=== PATIENT | female | born 1990 | race Caucasian/White ===

== ENCOUNTER 2017-06-01 23:53 | Emergency (ER) | payer OTHER ==
[2017-06-02] MEDS: ACETAMINOPHEN 500 MG TAB PO (02:22)
== END 2017-06-02 02:54 | disposition home or self-care (01) ==
LOC: FTE 23:53
DX: H65.01 Acute serous otitis media, right ear (principal)
CPT/HCPCS: 99283; Z7502

== ENCOUNTER 2017-06-02 06:54 | Inpatient (IN) | payer OTHER ==
[2017-06-02] MEDS ORDERED: LIDOCAINE 1% (MPF) 30 ML INJ INJ (08:00)
[2017-06-02] MEDS ORDERED: IBUPROFEN 600 MG TAB PO (08:00)
[2017-06-02] MEDS ORDERED: OXYTOCIN 30 UNITS/LR 500 ML IV (08:00)
[2017-06-02] MEDS ORDERED: MISOPROSTOL 200 MCG TAB PR (08:00)
[2017-06-02] MEDS ORDERED: METHYLERGONOVINE 0.2 MG INJ IM (08:00)
[2017-06-02] MEDS ORDERED: CARBOPROST 250 MCG INJ IM (08:00)
[2017-06-02 08:09] LABS: ADD MAN DIFF? NO
[2017-06-02 08:17] LABS: BASOPHILS % 0.3 % (0.0-2.0); EOSINOPHILS # 0.3 10^3/ul (0.0-0.5); EOSINOPHILS % 2.7 % (0.0-7.0); HEMATOCRIT 35.9 % (37.0-47.0); HEMOGLOBIN 11.8 g/dl (12.0-16.0); LYMPHOCYTES # 2.3 10^3/ul (0.8-2.9); LYMPHOCYTES % 20.6 % (15.0-51.0); MEAN CORPUSCULAR HEMOGLOBIN 25.3 pg (29.0-33.0); MEAN CORPUSCULAR HGB CONC 32.9 g/dl (32.0-37.0); MONOCYTE # 0.6 10^3/ul (0.3-0.9); MONOCYTES % 5.6 % (0.0-11.0); NEUTROPHILS % 70.4 % (39.0-77.0); PLATELET COUNT 237 10^3/UL (140-415); RED BLOOD COUNT 4.66 10^6/ul (4.20-5.40); RED CELL DISTRIBUTION WIDTH 14.3 % (11.5-14.5)
[2017-06-02 08:17] LABS: WHITE BLOOD COUNT 11.3 10^3/ul (4.8-10.8)
[2017-06-02 08:37] LABS: ALANINE AMINOTRANSFERASE 15 IU/L (13-69); ALBUMIN 3.2 g/dl (3.3-4.9); ALBUMIN/GLOBULIN RATIO 0.91; ALKALINE PHOSPHATASE 176 IU/L (42-121); ANION GAP 14 (8-16); ASPARTATE AMINO TRANSFERASE 15 IU/L (15-46); BILIRUBIN,INDIRECT 0.2 mg/dl (0-1.1); BILIRUBIN,TOTAL 0.2 mg/dl (0.2-1.3); BLOOD UREA NITROGEN 8 mg/dl (7-20); CALCIUM 8.8 mg/dl (8.4-10.2); CARBON DIOXIDE 22 mmol/L (21-31); CHLORIDE 108 mmol/L (97-110); CREATININE 0.76 mg/dl (0.44-1.00); GLUCOSE 89 mg/dl (70-220); POTASSIUM 4.1 mmol/L (3.5-5.1); SODIUM 140 mmol/L (135-144); TOTAL PROTEIN 6.7 g/dl (6.1-8.1); URIC ACID 5.5 mg/dl (3.1-7.9)
[2017-06-02 08:45] LABS: INR 0.88; PT RATIO 0.9
[2017-06-02 08:46] LABS: PARTIAL THROMBOPLASTIN TIME 27.2 Sec (25.0-35.0)
[2017-06-02] MEDS ORDERED: OXYCODONE/ACETAMINOPHEN (5/325) TAB PO (09:00)
[2017-06-02] MEDS ORDERED: BUTORPHANOL 2 MG INJ IV (09:00)
[2017-06-02 09:08] LABS: HEPATITIS B SURFACE ANTIGEN NEGATIVE (NEGATIVE)
[2017-06-02] MEDS: DINOPROSTONE 10 MG VAG SUPP VAG (09:15)
[2017-06-02] MEDS: LABETALOL 100 MG TAB PO ×2 (09:16→21:51)
[2017-06-02] MEDS: LACTATED RINGER'S 1,000 ML IV ×4 (09:16→23:55)
[2017-06-02 10:28] LABS: ADD UMIC YES; UR ASCORBIC ACID NEGATIVE (NEGATIVE); UR BACTERIA FEW /HPF (NONE SEEN); UR BILIRUBIN (Dip) NEGATIVE (NEGATIVE); UR BLOOD (Dip) 3+ mg/dL (NEGATIVE); UR CLARITY CLEAR (CLEAR); UR COLOR YELLOW (YELLOW); UR GLUCOSE (Dip) NEGATIVE (NEGATIVE); UR KETONES (Dip) NEGATIVE (NEGATIVE); UR LEUKOCYTE ESTERASE (Dip) 1+ Leu/ul (NEGATIVE); UR NITRITE (Dip) NEGATIVE (NEGATIVE); UR RBC 0 /HPF (0-5); UR SQUAMOUS EPITHELIAL CELL FEW /HPF (FEW); UR TOTAL PROTEIN (Dip) NEGATIVE (NEGATIVE); UR UROBILINOGEN (Dip) NEGATIVE (NEGATIVE); UR WBC 1 /HPF (0-5)
[2017-06-02] MEDS: ACETAMINOPHEN 325 MG TAB PO (16:29)
[2017-06-02] MEDS: BUTORPHANOL 2 MG INJ IV (19:37)
[2017-06-02 20:53] LABS: RAPID PLASMA REAGIN NONREACTIVE (NR)
[2017-06-02] MEDS ORDERED: FENTAnyl 2MCG/ML-ROPIV 0.2% 100 ML (23:11)
[2017-06-03] MEDS ORDERED: ONDANSETRON 4 MG INJ IV (00:30)
[2017-06-03] MEDS ORDERED: FENTAnyl 2MCG/ML-ROPIV 0.2% 100 ML BAG EPI (00:30)
[2017-06-03] MEDS ORDERED: DIPHENHYDRAMINE 50 MG INJ IV (00:30)
[2017-06-03] MEDS ORDERED: NALOXONE (0.4 MG/ML) INJ IV (00:30)
[2017-06-03] MEDS: OXYTOCIN 30 UNITS/LR 500 ML IV ×2 (05:22→05:54)
[2017-06-03] MEDS: LABETALOL 100 MG TAB PO ×2 (10:09→21:00)
[2017-06-03] MEDS ORDERED: MISOPROSTOL 200 MCG TAB PR (11:30)
[2017-06-03] MEDS ORDERED: ZOLPIDEM 5 MG TAB PO (11:30)
[2017-06-03] MEDS ORDERED: CARBOPROST 250 MCG INJ IM (11:30)
[2017-06-03] MEDS ORDERED: OXYTOCIN 30 UNITS/LR 500 ML IV (11:30)
[2017-06-03] MEDS ORDERED: METHYLERGONOVINE 0.2 MG INJ IM (11:30)
[2017-06-03] MEDS ORDERED: OXYCODONE/ASPIRIN (4.88/325) TAB PO ×2 (11:30)
[2017-06-03] MEDS: BENZOCAINE 20% 56 ML SPRAY TOP (12:03)
[2017-06-03] MEDS: LANOLIN 7 GM TUBE TOP (12:03)
[2017-06-03] MEDS: WITCH HAZEL/GLYCERIN PAD PR (12:03)
[2017-06-03] MEDS: IBUPROFEN 600 MG TAB PO ×4 (12:03→23:35)
[2017-06-03] MEDS: SENNA/DOCUSATE NA (8.6MG/50MG) TAB PO (21:43)
[2017-06-04] MEDS: IBUPROFEN 600 MG TAB PO ×4 (05:39→23:43)
[2017-06-04] MEDS: SENNA/DOCUSATE NA (8.6MG/50MG) TAB PO ×2 (08:49→21:39)
[2017-06-04] MEDS: LABETALOL 100 MG TAB PO ×2 (08:50→21:00)
[2017-06-04 10:59] LABS: ADD MAN DIFF? NO
[2017-06-04 11:07] LABS: WHITE BLOOD COUNT 13.2 10^3/ul (4.8-10.8)
[2017-06-04 11:07] LABS: BASOPHIL # 0.1 10^3/ul (0.0-0.1); BASOPHILS % 0.4 % (0.0-2.0); EOSINOPHILS # 0.5 10^3/ul (0.0-0.5); EOSINOPHILS % 3.4 % (0.0-7.0); HEMATOCRIT 32.8 % (37.0-47.0); HEMOGLOBIN 10.6 g/dl (12.0-16.0); LYMPHOCYTES # 2.7 10^3/ul (0.8-2.9); LYMPHOCYTES % 20.5 % (15.0-51.0); MEAN CORPUSCULAR HEMOGLOBIN 25.4 pg (29.0-33.0); MEAN CORPUSCULAR HGB CONC 32.3 g/dl (32.0-37.0); MEAN CORPUSCULAR VOLUME 78.5 fl (82.0-101.0); MEAN PLATELET VOLUME 12.8 fl (7.4-10.4); MONOCYTE # 0.7 10^3/ul (0.3-0.9); MONOCYTES % 5.1 % (0.0-11.0); NEUTROPHIL # 9.3 10^3/ul (1.6-7.5); NEUTROPHILS % 70.1 % (39.0-77.0); PLATELET COUNT 249 10^3/UL (140-415); RED BLOOD COUNT 4.18 10^6/ul (4.20-5.40); RED CELL DISTRIBUTION WIDTH 15.1 % (11.5-14.5)
[2017-06-05] MEDS: IBUPROFEN 600 MG TAB PO ×2 (05:59→11:52)
[2017-06-05] MEDS: LABETALOL 100 MG TAB PO (09:00)
[2017-06-05] MEDS: SENNA/DOCUSATE NA (8.6MG/50MG) TAB PO (09:04)
[2017-06-05] MEDS: DIPHTH/TET/ACEL PERTUSS (ADULT) 0.5 ML VIAL IM* (09:05)
== END 2017-06-05 14:00 | disposition home or self-care (01) | DRG 774 ==
LOC: L-D 06:54 → PP1 06-03 10:55
PROVIDERS: Obstetrics & Gynecology
PROC: 10E0XZZ Delivery of Products of Conception, External Approach (ICD-10-PCS; principal; 2017-06-03)
PROC: 3E0P7VZ Introduction of Hormone into Female Reproductive, Via Natural or Artificial Opening (ICD-10-PCS; 2017-06-03)
DX: O14.03 Mild to moderate pre-eclampsia, third trimester (principal); Z37.0 Single live birth; Z3A.39 39 weeks gestation of pregnancy
CPT/HCPCS: 62319; 76815; 76818; 80053; 81001; 84560; 85025; 85384; 85610; 85730; 86592; 86900; 86901; 87340; 88307; 90715; 99464